=== PATIENT | female | born 1940 | race Caucasian/White ===

== ENCOUNTER → 2018-09-19 | Outpatient (CLI) | payer MEDICARE, OTHER ==
[2018-09-19 13:26] LABS: ABSOLUTE EOSINOPHILS 0.1 thou/uL (0.0-0.7); ABSOLUTE LYMPHOCYTES 2.3 thou/uL (0.8-5.3); ABSOLUTE MONOCYTES 0.7 thou/uL (0.0-1.2); ABSOLUTE NEUTROPHILS 6.9 thou/uL (1.6-8.1); BASOPHILS 0.3 %; EOSINOPHILS 0.6 %; HEMATOCRIT 39.4 % (37.0-47.0); LYMPHOCYTES 22.9 %; MCH 30.7 pg (26.0-34.0); MCV 93.1 fL (80.0-100.0); MONOCYTES 6.9 %; MPV 7.2 fl. (7.2-11.1); NUCLEATED RBCS 0 /100WBC; PLATELET COUNT* 428 thou/uL (150-400); POLYS 69.3 %; RBC 4.24 mil/uL (4.20-5.00); RDW-CV 13.3 % (10.5-14.5); WBC 9.9 thou/uL (4.0-11.0)
[2018-09-19 13:45] LABS: ALBUMIN 3.7 g/dL (3.4-5.0); ALKALINE PHOSPHATASE 39 U/L (46-116); ANION GAP 7 mmol/L (7-16); BUN 12 mg/dL (7-18); CHLORIDE 105 mmol/L (98-107); CHOLESTEROL 141 mg/dL (<200); CO2 25 mmol/L (21-32); CREATININE 0.7 mg/dL (0.6-1.3); DIRECT BILIRUBIN 0.1 mg/dL (<0.1-0.3); GLUCOSE 99 mg/dL (70-99); HDL CHOLESTEROL 57 mg/dL (>40); LDL CHOLESTEROL 67 mg/dL (<100); POTASSIUM 3.6 mmol/L (3.5-5.1); SGOT 22 U/L (15-37); SGPT 27 U/L (30-65); SODIUM 137 mmol/L (136-145); TC:HDL 2.5 Ratio (Not establshd); TOTAL BILIRUBIN 0.5 mg/dL (<0.1-1.0); TOTAL PROTEIN 7.2 g/dL (6.4-8.2); TRIGLYCERIDE 88 mg/dL (<150); VLDL 18 mg/dL (<40)
[2018-09-19 13:46] LABS: SERUM ASSESSMENT Clear
== END ==
LOC: M.LAB 11:11
PROVIDERS: Internal Medicine
DX: E78.5 Hyperlipidemia, unspecified (principal); I10 Essential (primary) hypertension; Z79.899 Other long term (current) drug therapy

== ENCOUNTER → 2020-01-14 | Outpatient (CLI) | payer MEDICARE, OTHER ==
[2020-01-14 10:04] LABS: HEMATOCRIT 41.9 % (37.0-47.0); HEMOGLOBIN 14.2 gm/dL (12.0-15.0); MCH 31.4 pg (26.0-34.0); MCV 92.3 fL (80.0-100.0); MPV 6.7 fl. (7.2-11.1); RBC 4.53 mil/uL (4.20-5.00); RDW-CV 13.4 % (10.5-14.5); WBC 12.1 thou/uL (4.0-11.0)
[2020-01-14 10:16] LABS: ALBUMIN 4.1 g/dL (3.4-5.0); ALKALINE PHOSPHATASE 33 U/L (46-116); ANION GAP 7 mmol/L (7-16); BUN 19 mg/dL (7-18); CALCIUM 8.9 mg/dL (8.5-10.1); CHLORIDE 102 mmol/L (98-107); CHOLESTEROL 176 mg/dL (<200); CO2 30 mmol/L (21-32); DIRECT BILIRUBIN 0.2 mg/dL (<0.1-0.3); GLUCOSE 112 mg/dL (70-99); HDL CHOLESTEROL 90 mg/dL (>40); LDL CHOLESTEROL 65 mg/dL (<100); POTASSIUM 3.5 mmol/L (3.5-5.1); SGOT 22 U/L (15-37); SGPT 40 U/L (30-65); SODIUM 139 mmol/L (136-145); TOTAL BILIRUBIN 0.5 mg/dL (<0.1-1.0); TOTAL PROTEIN 7.5 g/dL (6.4-8.2); TRIGLYCERIDE 105 mg/dL (<150); VLDL 21 mg/dL (<40)
[2020-01-14 10:24] LABS: SERUM ASSESSMENT Clear
== END ==
LOC: M.RAD 09:15
PROVIDERS: Internal Medicine
DX: M48.54XA Collapsed vertebra, not elsewhere classified, thoracic region, initial encounter for fracture (principal); M43.17 Spondylolisthesis, lumbosacral region; R10.9 Unspecified abdominal pain; M25.551 Pain in right hip; I10 Essential (primary) hypertension; E78.5 Hyperlipidemia, unspecified; Z79.899 Other long term (current) drug therapy

== ENCOUNTER → 2020-02-03 | Outpatient (CLI) | payer MEDICARE, OTHER ==
[~2020-02-03] MED LIST: BUSPIRONE HCL15 MG PO; CHILDREN'S ASPI81 M1 PO; FENOFIBRATE150 MG PO; MULTIVITAMINS1 EAC7 PO; PROAIR HFA8.5 GM PO; ROSUVASTATIN CA10 MG PO; TYLENOL #3 PO; [UNRECOGNIZED DRUG - OTHER] PO; lisinopril PO
== END ==
LOC: M.PC 04:47
DX: M51.16 Intervertebral disc disorders with radiculopathy, lumbar region (principal); M47.26 Other spondylosis with radiculopathy, lumbar region; M48.061 Spinal stenosis, lumbar region without neurogenic claudication; Z79.891 Long term (current) use of opiate analgesic

== ENCOUNTER → 2020-02-03 | Outpatient (CLI) | payer MEDICARE, OTHER | LOC: M.MRI 15:00 | DX: M51.37 Other intervertebral disc degeneration, lumbosacral region (principal); M48.07 Spinal stenosis, lumbosacral region; M51.35 Other intervertebral disc degeneration, thoracolumbar region; M71.38 Other bursal cyst, other site ==

== ENCOUNTER → 2020-02-10 | Outpatient (CLI) | payer MEDICARE, OTHER | END | disposition home or self-care (01) | LOC: M.PC 04:26 | PROVIDERS: ATTEND Physical Medicine & Rehabilitation | DX: M51.16 Intervertebral disc disorders with radiculopathy, lumbar region (principal); M47.816 Spondylosis without myelopathy or radiculopathy, lumbar region; M48.061 Spinal stenosis, lumbar region without neurogenic claudication; G89.29 Other chronic pain; M79.604 Pain in right leg; J44.9 Chronic obstructive pulmonary disease, unspecified; Z98.890 Other specified postprocedural states; Z79.899 Other long term (current) drug therapy ==

== ENCOUNTER → 2020-02-17 | Outpatient (CLI) | payer MEDICARE, OTHER | END | disposition home or self-care (01) | LOC: M.PC 04:40 | PROVIDERS: ATTEND Physical Medicine & Rehabilitation | DX: M51.16 Intervertebral disc disorders with radiculopathy, lumbar region (principal); M47.26 Other spondylosis with radiculopathy, lumbar region; M48.02 Spinal stenosis, cervical region; G89.29 Other chronic pain; J44.9 Chronic obstructive pulmonary disease, unspecified; Z98.890 Other specified postprocedural states; Z79.899 Other long term (current) drug therapy ==

== ENCOUNTER → 2020-03-02 | Outpatient (CLI) | payer MEDICARE, OTHER | LOC: M.PC 03:34 | PROVIDERS: ATTEND Physical Medicine & Rehabilitation | DX: M47.26 Other spondylosis with radiculopathy, lumbar region (principal); M51.16 Intervertebral disc disorders with radiculopathy, lumbar region; M48.061 Spinal stenosis, lumbar region without neurogenic claudication ==

== ENCOUNTER → 2021-01-24 | Outpatient (CLI) | payer MEDICARE, OTHER ==
[2021-01-24 09:23] LABS: HEMATOCRIT 42.5 % (37.0-47.0); HEMOGLOBIN 14.3 gm/dL (12.0-15.0); MCH 31.2 pg (26.0-34.0); MCHC 33.8 g/dL (28.0-37.0); MCV 92.3 fL (80.0-100.0); MPV 6.8 fl. (7.2-11.1); RBC 4.6 mil/uL (4.20-5.00); RDW-CV 13.1 % (10.5-14.5); WBC 7.1 thou/uL (4.0-11.0)
[2021-01-24 09:39] LABS: ALBUMIN 4.2 g/dL (3.4-5.0); ALKALINE PHOSPHATASE 45 U/L (46-116); CHOLESTEROL 159 mg/dL (<200); DIRECT BILIRUBIN 0.1 mg/dL (<0.1-0.3); HDL CHOLESTEROL 64 mg/dL (>40); LDL CHOLESTEROL 75 mg/dL (<100); SERUM ASSESSMENT Clear; SGOT 31 U/L (15-37); SGPT 44 U/L (30-65); TC:HDL 2.5 Ratio (Not establshd); TOTAL BILIRUBIN 0.5 mg/dL (<0.1-1.0); TOTAL PROTEIN 7.3 g/dL (6.4-8.2); TRIGLYCERIDE 101 mg/dL (<150); VLDL 20 mg/dL (<40)
--- NOTE | 2021-02-07 13:33 | PF ---
[address] [address] PULMONARY FUNCTION REPORT Name: NEVIN JANG Room: [facility]#: [id number] Admission: 01/24/21 Attend Phys: Physician not on staf Discharge: Date of : 38 Report #: [id number] THIS REPORT FOR: cc: Kushal Ramos,Joel Galan MD ~ DOC #: [id number] Joel Rosario MD DATE OF VISIT: 01/24/2021 The FEV1/FVC ratio is severely decreased to 31% with an FVC normal at 87%. The FEV1; however, is also decreased at 36%. The FEF 25-75 was decreased to 8% only after the administration of a bronchodilator, there is a 16% increase in FEV1 and 17% increase in FVC. The increase in FVC does exceed 200 mL. The total lung capacity is close to the upper limit of normal range at 116% with residual volume increased to 144%. The flow volume loop is concave upwards. The DLCO as adjusted for hemoglobin is decreased 54%. IMPRESSION: 1. Severe obstruction with evidence of reversibility. 2. Hyperinflation. 3. DLCO as adjusted for hemoglobin decreased to 54%. Joel Rosario MD AP/SUM <ELECTRONICALLY SIGNED> By: Joel Rosario MD 02/07/21 1333 1424 MD kathie Waters
== END ==
LOC: M.PUL 08:47
DX: J43.1 Panlobular emphysema (principal); R94.2 Abnormal results of pulmonary function studies; E78.5 Hyperlipidemia, unspecified; I73.9 Peripheral vascular disease, unspecified; I10 Essential (primary) hypertension

== ENCOUNTER 2021-06-28 20:39 | Emergency (ER) | payer MEDICARE, OTHER ==
[~2021-06-28] VITALS: Ht 167.6 cm; Wt 68.0 kg
[2021-06-28 20:46] VITALS: BP 151/88
[2021-06-28] MEDS ORDERED: PROLIA60 MG/1 ML SUBQ (20:52)
== END 2021-06-28 21:28 | disposition left against medical advice (07) ==
LOC: M.ERS 20:39
DX: J02.9 Acute pharyngitis, unspecified (principal); Z53.21 Procedure and treatment not carried out due to patient leaving prior to being seen by health care provider